=== PATIENT | female | born 1970 | race Caucasian/White ===

== ENCOUNTER → 2021-03-02 | Outpatient (CLI) | payer OTHER ==
[~2021-03-02] MED LIST: BUPR1PAT7 TD; GABA-585 PO; OMEP20CA16 PO; TIZA4TAB8 PO; TRAM50TA PO
--- NOTE | 2021-03-02 16:54 | KCIC ---
EXAM: PA and Lateral Views of the Chest DATE: 03/02/2021 10:23 AM INDICATION: Reason: Bronchitis, cough for 3 weeks. Past hx. pneumonia / Spl. Instructions: / History : COMPARISON: No Prior FINDINGS: The heart is not enlarged. Mediastinal and hilar contours are normal. No focal parenchymal airspace opacity. No pleural effusion or pneumothorax. IMPRESSION: 1. No radiographic evidence for acute cardiopulmonary process. Electronically signed by: Tyrell Lawrence MD (03/02/2021 4:51 PM) [facility]
== END ==
LOC: KCIC 10:20
PROVIDERS: ATTEND Family Medicine
DX: J40 Bronchitis, not specified as acute or chronic (principal)
CPT/HCPCS: 71046